=== PATIENT | female | born 1960 | race Caucasian/White ===

== ENCOUNTER 2018-07-21 14:37 | Emergency (ER) | payer MEDICAID, OTHER ==
[~2018-07-21] VITALS: Ht 170.2 cm; Wt 106.7 kg
[~2018-07-21 14:37] MED LIST: ESCI10TA PO; IBUP-2218 PO; VENL100T5 PO
[2018-07-21 15:00] VITALS: BP 122/76
--- NOTE | 2018-07-21 15:04 | NUR ---
PT AMBULATES BACK TO THE LOBBY
--- NOTE | 2018-07-21 16:00 | NUR ---
PT AMB TO BED1
--- NOTE | 2018-07-21 16:05 | NUR ---
BIB SELF WITH C/O /10 LT FLANK PAIN GREATER THAN LT UPPER ARM PAIN X 1 WK WITH SOB S/P TRIP AND FELL ON A LOG ON A CONCRETE FLOOR. DENIES OTHER INJURY, LOC, OR VOMITING + DISCOLORATION ON LT UPPER ARM HX; ANXIETY, ARTHRITIS -- RX; BUPRENORPHIN, LAXOPRIL, LASIX
[2018-07-21 18:52] VITALS: BP 131/79
--- NOTE | 2018-07-21 18:52 | NUR ---
Patient discharged with v/s stable. Written and verbal after care instructions given and explained. Patient alert, oriented and verbalized understanding of instructions. Ambulatory with steady gait. All questions addressed prior to discharge. ID band removed. Patient advised to follow up with PMD. Rx of TYLENOL WITH CODEINE given. Patient educated on indication of medication including possible reaction and side effects. Opportunity to ask questions provided and answered.
== END 2018-07-21 18:52 | disposition home or self-care (01) ==
LOC: MED 14:37
DX: S22.42XA Multiple fractures of ribs, left side, initial encounter for closed fracture (principal); M79.602 Pain in left arm; F41.9 Anxiety disorder, unspecified; E66.01 Morbid (severe) obesity due to excess calories; G89.29 Other chronic pain; I89.0 Lymphedema, not elsewhere classified; Z68.36 Body mass index [BMI] 36.0-36.9, adult; Z79.1 Long term (current) use of non-steroidal anti-inflammatories (NSAID); Z79.899 Other long term (current) drug therapy; Z88.8 Allergy status to other drugs, medicaments and biological substances; W01.0XXA Fall on same level from slipping, tripping and stumbling without subsequent striking against object, initial encounter; Y93.89 Activity, other specified; Y92.89 Other specified places as the place of occurrence of the external cause; Y99.8 Other external cause status
CPT/HCPCS: 71101; 71250; 73060; 99284

== ENCOUNTER 2020-08-10 16:19 | Emergency (ER) | payer OTHER ==
[~2020-08-10] VITALS: Ht 170.2 cm; Wt 108.9 kg
[2020-08-10 16:23] VITALS: BP 117/81
--- NOTE | 2020-08-10 16:25 | NUR ---
Patient ambulated to bed 04 with steady/even gait.
--- NOTE | 2020-08-10 17:17 | NUR ---
DAMI Briseno is evaluating patient at bedside.
--- NOTE | 2020-08-10 17:20 | NUR ---
60 y/o F coming in from home with c/c right ankle pain x 3 weeks. Patient presents A&Ox4, ambulatory and states ankle pain 10/10, radiating up right leg and hip. Patient states history of arthritis and varicose veins. Pt denies headache, dizziness, recent trauma/injury, head/neck/back pain, abdominal pain. Patient states she took Tylenol 650mg with no relief prior to arrival. Worsens with ambulation and is better with heat pads. 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 Bed locked in lowest position, side rails x 1, call light in reach. PMH- CYST ON LIVER, ARTHRITIS, DEPRESSION RX- TYLENOL, VENLAFAXINE, SUBOXONE ALLERGIES- NITROFURANTOIN
[2020-08-10] MEDS ORDERED: KETOROLAC 30 MG/ML VIAL IM ONE (17:25)
--- NOTE | 2020-08-10 17:25 | NUR ---
Xray at bedside
--- NOTE | 2020-08-10 18:52 | NUR ---
attempted to apply fco wrap but patient left without fco wrap
--- NOTE | 2020-08-10 18:53 | NUR ---
PATIENT ELOPED FROM FACILITY. DISCHARGE INSTRUCTIONS NOT GIVEN TO PATIENT. DAMI LIMA NOTIFIED. PT STATES SHE NEEDED TO GO HOME AND TAKE CARE OF HER CATS.
== END 2020-08-10 18:48 | disposition left against medical advice (07) ==
LOC: MED 16:19
DX: M25.571 Pain in right ankle and joints of right foot (principal); F32.9 Major depressive disorder, single episode, unspecified; Z88.8 Allergy status to other drugs, medicaments and biological substances; Z79.899 Other long term (current) drug therapy
CPT/HCPCS: 73610; 96372; 99283; J1885

== ENCOUNTER 2020-10-22 14:53 | Emergency (ER) | payer OTHER ==
[~2020-10-22] VITALS: Ht 165.1 cm; Wt 108.9 kg
[2020-10-22 15:16] VITALS: BP 102/62
--- NOTE | 2020-10-22 15:24 | NUR ---
PATIENT SENT TO LOBBY
--- NOTE | 2020-10-22 16:28 | NUR ---
Ambulated to bed 9
--- NOTE | 2020-10-22 16:34 | NUR ---
60/F presents to ED with c/o of rash. Patient states since she has had a worsening rash spreading throughout her body, stating "I think it started off as a bug bite and the sun made it worse." Patient states she saw her OB doctor and was recommended for her to buy over the counter benadryl, aveeno soap and calamine lotion but states she has had no relief. Patient denies any shortness of breath or chest pain. Red raised patches noted throughout patients body and extremities, denying pain but states its "very itchy."
[2020-10-22] MEDS ORDERED: DEXAMETHASONE 10 MG/ML VIAL IM ONE (16:35)
[2020-10-22] MEDS ORDERED: HYDROXYZINE HYDROCHLORIDE 25 MG TAB PO ONE (16:35)
[2020-10-22] MEDS ORDERED: HYD1C TP (16:41)
[2020-10-22] MEDS ORDERED: ATA25 PO (16:41)
[2020-10-22 17:28] VITALS: BP 102/62
--- NOTE | 2020-10-22 17:28 | NUR ---
Patient discharged with v/s stable. Written and verbal after care instructions given and explained. Patient alert, oriented and verbalized understanding of instructions. Ambulatory with steady gait. All questions addressed prior to discharge. ID band removed. Patient advised to follow up with PMD. Rx of ATARAX HCL, HYDROCORTISONE 1% given. Patient educated on indication of medication including possible reaction and side effects. Opportunity to ask questions provided and answered.
== END 2020-10-22 17:21 | disposition home or self-care (01) ==
LOC: MED 14:53
DX: L20.9 Atopic dermatitis, unspecified (principal); D64.9 Anemia, unspecified; F32.9 Major depressive disorder, single episode, unspecified; F41.9 Anxiety disorder, unspecified; Z79.899 Other long term (current) drug therapy; Z88.8 Allergy status to other drugs, medicaments and biological substances
CPT/HCPCS: 96372; 99283; J1100

== ENCOUNTER 2021-08-07 17:34 | Emergency (ER) | payer OTHER ==
[~2021-08-07] VITALS: Ht 170.2 cm; Wt 109.8 kg
[~2021-08-07 17:34] MED LIST changes: +ATA25 PO; +HYD1C TP
[2021-08-07 17:42] VITALS: BP 179/113
--- NOTE | 2021-08-07 17:52 | NUR ---
pt lwbs at this time
== END 2021-08-07 17:51 | disposition left against medical advice (07) ==
LOC: MED 17:34
DX: R60.0 Localized edema (principal); Z53.21 Procedure and treatment not carried out due to patient leaving prior to being seen by health care provider

== ENCOUNTER 2021-08-09 14:44 | Emergency (ER) | payer OTHER ==
[~2021-08-09] VITALS: Ht 170.2 cm; Wt 108.9 kg
[2021-08-09 15:04] VITALS: BP 126/71
--- NOTE | 2021-08-09 15:25 | NUR ---
61 YO F, C/O CAT BITES YESTERDAY, BITE CHILEL TO LEFT HAND, DENIES PAIN AT THIS MOMENT, NO SWELLING NOTED. PT NOTICABLY HAS BILATERAL LEG SWELLING, PER PT HAS RAN OUT OF WATER PILLS. PMH: ARTHRITIS, SEVERE VERICOSE VEIN, CHRONIC PAIN, DEPRESSION. ALLERGY: NITROFURANTION
[2021-08-09] MEDS ORDERED: KETOROLAC 15 MG/ML VIAL IVP ONE (15:45)
[2021-08-09] MEDS ORDERED: AMPICILLIN/SULBACTAM 3 GM in NACL 0.9% 100 ML IV ONE (15:45)
[2021-08-09] MEDS ORDERED: POTASSIUM CHLORIDE 10 MEQ TABER PO ONE (15:50)
[2021-08-09] MEDS ORDERED: FUROSEMIDE 20 MG TAB PO ONE (15:50)
[2021-08-09] MEDS ORDERED: AMPICILLIN/SULBACTAM 3 GM VIAL ONE (15:59)
[2021-08-09] MEDS ORDERED: ACET-10509 PO (16:13)
[2021-08-09] MEDS ORDERED: AMOX1TAB8 PO (16:13)
[2021-08-09] MEDS ORDERED: IBUP-2213 PO (16:13)
[2021-08-09 17:30] VITALS: BP 118/68
--- NOTE | 2021-08-09 17:30 | NUR ---
Patient discharged with v/s stable. Written and verbal after care instructions given and explained. Patient alert, oriented and verbalized understanding of instructions. Ambulatory with steady gait. All questions addressed prior to discharge. ID band removed. Patient advised to follow up with PMD. Rx of TYLENOL,AMOX-CLAV given. Patient educated on indication of medication including possible reaction and side effects. Opportunity to ask questions provided and answered.
== END 2021-08-09 17:30 | disposition home or self-care (01) ==
LOC: MED 14:44
DX: S51.851A Open bite of right forearm, initial encounter (principal); I51.9 Heart disease, unspecified; Z88.8 Allergy status to other drugs, medicaments and biological substances; W55.01XA Bitten by cat, initial encounter; Y93.89 Activity, other specified; Y92.89 Other specified places as the place of occurrence of the external cause; Y99.8 Other external cause status
CPT/HCPCS: 90471; 90715; 96365; 96375; 99284; J0295; J1885